=== PATIENT | female | born 1980 | race African-American/Black ===

== ENCOUNTER 2017-03-28 18:16 | Emergency (ER) | payer SELFPAY | END 2017-03-28 20:09 | disposition home or self-care (01) | LOC: ERS 18:16 | DX: L02.412 Cutaneous abscess of left axilla (principal); E11.9 Type 2 diabetes mellitus without complications; F17.210 Nicotine dependence, cigarettes, uncomplicated; I10 Essential (primary) hypertension | CPT/HCPCS: 99283 ==

== ENCOUNTER 2017-03-30 12:14 | Emergency (ER) | payer SELFPAY | END 2017-03-30 14:22 | disposition home or self-care (01) | LOC: ERS 12:14 | DX: Z48.817 Encounter for surgical aftercare following surgery on the skin and subcutaneous tissue (principal); Z48.01 Encounter for change or removal of surgical wound dressing; E11.9 Type 2 diabetes mellitus without complications; F17.210 Nicotine dependence, cigarettes, uncomplicated; I10 Essential (primary) hypertension | CPT/HCPCS: 99282 ==

== ENCOUNTER 2017-09-21 07:51 | Emergency (ER) | payer SELFPAY ==
[2017-09-21 08:20] LABS: #Basophils 0.1 thou/uL (0.0-0.2); #Eosinphils 0.2 thou/uL (0.0-0.7); #Lymphocytes 2.5 thou/uL (1.20-3.40); #Monocytes 0.7 thou/uL (0.11-0.59); #Neutrophils 3.5 thou/uL (1.40-6.50); %Basophils 0.9 % (0.0-1.0); %Eosinophils 2.3 % (0.0-10.0); %Lymphocytes 36.1 % (21.0-51.0); %Monocytes 9.6 % (0.0-10.0); %Neutrophils 51.2 % (42.0-75.0); Mean Corpuscular HGB CONC 33.5 g/dL (32.0-36.0); Mean Corpuscular Hemoglobin 26.1 pg (27.0-31.0); Mean Corpuscular Volume 77.9 fl (81.0-99.0); Mean Platelet Volume 7.1 fL (7.4-10.4); Platelet Count 355 thou/uL (130-400); RBC Distribution Width 16.2 % (11.5-14.5); Red Blood Cell (RBC) Count 4.62 mill/uL (4.20-5.40); White Blood Cell (WBC) Count 6.9 thou/uL (4.8-10.8)
[2017-09-21 08:40] LABS: ALT (SGPT) 13 U/L (8-55); AST (SGOT) 14 U/L (5-34); Albumin 3.9 g/dL (3.5-5.0); Alkaline Phosphatase 62 U/L (40-150); Anion Gap 11 mmol/L (10-20); BUN (Urea Nitrogen) 10 mg/dL (7.0-18.7); Bilirubin, Total 0.3 mg/dL (0.2-1.2); Calc. Creatinine Clearance 0 mL/min (70-130); Calcium 8.8 mg/dL (7.8-10.44); Carbon Dioxide 24 mmol/L (22-29); Chloride 107 mmol/L (98-107); Estimated GFR-MDRD Greater than 90; Globulin 4.2 g/dL (2.4-3.5); Glucose 95 mg/dL (70-105); Potassium 3.6 mmol/L (3.5-5.1); Protein, Total 8.1 g/dL (6.0-8.3); Sodium 138 mmol/L (136-145)
[2017-09-21] MEDS ORDERED: Ondansetron ODT 4 MG TAB ONE (09:08)
[2017-09-21] MEDS ORDERED: Lidocaine 2% Viscous Solution 10 ML, Aluminum & Magnesium Hydroxide 30 ML SSW SCH (11:00)
[2017-09-21 11:12] LABS: Bilirubin Negative (Negative); Blood, Urine Small (Negative); Glucose, Urine (Dipstick) Negative (Negative); Leukocyte Trace (Negative); Nitrite Negative (Negative); Protein, Urine (Dipstick) Negative (Neg-Trace); Urobilinogen 0.2 mg/dL (0.2-1.0); pH, Urine 5.5 (5.0-9.0)
[2017-09-21 11:15] LABS: Pregnancy Test - Urine (BHCG) Negative (Negative); Pregu Control Background? CLEAR/WHITE (CLR/WHITE); Pregu Control Bar Appear? YES (CONTROL BAR); Specific Gravity 1.015 (1.002-1.036)
[2017-09-21 11:16] LABS: Clarity CLEAR (Clear)
[2017-09-21 11:26] LABS: Bacteria/HPF 2+ HPF (None Seen); Hyaline Casts/LPF NONE SEEN LPF (0-3 Hyaline); WBC/HPF 0-3 HPF (0-3)
== END 2017-09-21 11:48 | disposition home or self-care (01) ==
LOC: ERS 07:51
DX: R19.7 Diarrhea, unspecified (principal); E11.9 Type 2 diabetes mellitus without complications; I10 Essential (primary) hypertension; F17.210 Nicotine dependence, cigarettes, uncomplicated; Z79.84 Long term (current) use of oral hypoglycemic drugs; Z79.899 Other long term (current) drug therapy
CPT/HCPCS: 36415; 80053; 81003; 81015; 81025; 85025; 99284; Q0162

== ENCOUNTER 2017-12-24 19:04 | Emergency (ER) | payer SELFPAY ==
[2017-12-24 20:25] LABS: #Basophils 0.1 thou/uL (0.0-0.2); #Eosinphils 0.2 thou/uL (0.0-0.7); #Lymphocytes 3.4 thou/uL (1.20-3.40); #Monocytes 0.8 thou/uL (0.11-0.59); #Neutrophils 6.2 thou/uL (1.40-6.50); %Basophils 0.8 % (0.0-1.0); %Eosinophils 2.1 % (0.0-10.0); %Lymphocytes 31.7 % (21.0-51.0); %Neutrophils 58.4 % (42.0-75.0); Hemoglobin 11.6 g/dL (12.0-16.0); Mean Corpuscular HGB CONC 34.7 g/dL (32.0-36.0); Mean Corpuscular Volume 77.8 fL (78.0-98.0); Mean Platelet Volume 6.5 fL (7.4-10.4); Platelet Count 345 thou/uL (130-400); RBC Distribution Width 14.9 % (11.5-14.5); Red Blood Cell (RBC) Count 4.31 mill/uL (4.20-5.40); White Blood Cell (WBC) Count 10.6 thou/uL (4.8-10.8)
[2017-12-24 20:27] LABS: Bilirubin Negative (Negative); Blood, Urine Large (Negative); Clarity CLOUDY (Clear); Glucose, Urine (Dipstick) Negative (Negative); Leukocyte Large (Negative); Nitrite Negative (Negative); Protein, Urine (Dipstick) Trace mg/dL (Neg-Trace); Specific Gravity, Urine 1.019 (1.002-1.036); Urobilinogen 0.2 mg/dL (0.2-1.0); pH, Urine 5.5 (5.0-9.0)
[2017-12-24 20:30] LABS: Bacteria/HPF 1+ HPF (None Seen); Hyaline Casts/LPF 0-3 HYALINE CAST LPF (0-3 Hyaline); Pathc Cast-AUWi Flag 0.29 (0-2.49); RBC/HPF GREATER THAN 50-TNTC HPF (0-3)
[2017-12-24 20:53] LABS: ALT (SGPT) 15 U/L (8-55); AST (SGOT) 13 U/L (5-34); Albumin 3.9 g/dL (3.5-5.0); Alkaline Phosphatase 55 U/L (40-150); Anion Gap 9 mmol/L (10-20); BUN (Urea Nitrogen) 13 mg/dL (7.0-18.7); Bilirubin, Total 0.2 mg/dL (0.2-1.2); Calc. Creatinine Clearance 0 mL/min (70-130); Calcium 9.3 mg/dL (7.8-10.44); Carbon Dioxide 26 mmol/L (22-29); Chloride 107 mmol/L (98-107); Estimated GFR-MDRD 78; Globulin 4.1 g/dL (2.4-3.5); Glucose 102 mg/dL (70-105); Potassium 3.3 mmol/L (3.5-5.1); Sodium 139 mmol/L (136-145)
== END 2017-12-24 21:54 | disposition home or self-care (01) ==
LOC: ERS 19:04
DX: N39.0 Urinary tract infection, site not specified (principal); R51 Headache; E11.9 Type 2 diabetes mellitus without complications; I10 Essential (primary) hypertension; F17.210 Nicotine dependence, cigarettes, uncomplicated
CPT/HCPCS: 36415; 80053; 81003; 81015; 85025; 87086; 99283

== ENCOUNTER 2018-01-24 13:13 | Emergency (ER) | payer SELFPAY ==
--- NOTE | 2018-01-24 14:08 | RAD ---
TWO VIEWS OF THE CHEST: COMPARISON: 06/27/03. HISTORY: Right chest pain. FINDINGS: Two views of the chest show a normal-size cardiomediastinal silhouette. Linear opacities in the lung bases likely represent atelectasis. There is no evidence of consolidation, mass, or pleural effusio n. IMPRESSION: 1. No evidence of acute cardiopulmonary disease. 2. Bibasilar atelectasis. POS: [facility]
[2018-01-24] MEDS ORDERED: Ondansetron HCl/PF 4 MG/2 ML Vial ONE ×2 (15:08→15:41)
[2018-01-24] MEDS ORDERED: Morphine 4 MG/ML VIAL ONE ×2 (15:08→15:41)
[2018-01-24 15:30] LABS: Bilirubin Negative (Negative); Blood, Urine Moderate (Negative); Clarity CLOUDY (Clear); Glucose, Urine (Dipstick) Negative (Negative); Leukocyte Trace (Negative); Nitrite Negative (Negative); Protein, Urine (Dipstick) Negative (Neg-Trace); Specific Gravity, Urine 1.015 (1.002-1.036); Urobilinogen 0.2 mg/dL (0.2-1.0); pH, Urine 6.5 (5.0-9.0)
[2018-01-24 15:34] LABS: Bacteria/HPF Rare-Few HPF (None Seen); Hyaline Casts/LPF 0-3 HYALINE CAST LPF (0-3 Hyaline); Pathc Cast-AUWi Flag 0.29 (0-2.49); RBC/HPF 0-3 HPF (0-3)
[2018-01-24 15:56] LABS: #Basophils 0.1 thou/uL (0.0-0.2); #Eosinphils 0.2 thou/uL (0.0-0.7); #Monocytes 0.6 thou/uL (0.11-0.59); #Neutrophils 6.6 thou/uL (1.40-6.50); %Eosinophils 1.6 % (0.0-10.0); %Lymphocytes 28.3 % (21.0-51.0); %Monocytes 5.5 % (0.0-10.0); %Neutrophils 63.5 % (42.0-75.0); Hemoglobin 11.4 g/dL (12.0-16.0); Mean Corpuscular HGB CONC 32.2 g/dL (32.0-36.0); Mean Corpuscular Hemoglobin 25.1 pg (27.0-31.0); Platelet Count 467 thou/uL (130-400); RBC Distribution Width 15.2 % (11.5-14.5); Red Blood Cell (RBC) Count 4.55 mill/uL (4.20-5.40); White Blood Cell (WBC) Count 10.4 thou/uL (4.8-10.8)
[2018-01-24 16:05] LABS: BHCG - Serum Negative (NEGATIVE); Pregs Control Background? CLEAR/WHITE (CLR/WHITE); Pregs Control Bar Appear? YES (CONTROL BAR)
--- NOTE | 2018-01-24 16:12 | ULT ---
RIGHT UPPER QUADRANT ULTRASOUND: 01/24/18 HISTORY: Right upper quadrant pain. FINDINGS: The liver demonstrates increased echogenicity concerning for fatty infiltration. No focal mass or harinder adrien dilatation is seen. No gallstones, gallbladder wall thickening or pericholecystic fluid is identi fied. The common duct measures 4 mm in diameter. The gallbladder is not satisfactory distended due t o patient's postprandial status. The right kidney and visualized portions of the pancreas are normal. No free fluid is seen. IMPRESSION: 1. Fatty liver. 2. No definite evidence of cholelithiasis. POS: [facility]
[2018-01-24 16:17] LABS: ALT (SGPT) 14 U/L (8-55); AST (SGOT) 18 U/L (5-34); Alkaline Phosphatase 63 U/L (40-150); Anion Gap 14 mmol/L (10-20); BUN (Urea Nitrogen) 8 mg/dL (7.0-18.7); Bilirubin, Total 0.2 mg/dL (0.2-1.2); Calc. Creatinine Clearance 0 mL/min (70-130); Calcium 9.5 mg/dL (7.8-10.44); Carbon Dioxide 24 mmol/L (22-29); Chloride 103 mmol/L (98-107); Estimated GFR-MDRD Greater than 90; Globulin 5.1 g/dL (2.4-3.5); Glucose 82 mg/dL (70-105); Lipase 17 U/L (8-78); Potassium 4.1 mmol/L (3.5-5.1); Protein, Total 9.1 g/dL (6.0-8.3); Sodium 137 mmol/L (136-145)
== END 2018-01-24 17:18 | disposition home or self-care (01) ==
LOC: ERS 13:13
DX: S29.011A Strain of muscle and tendon of front wall of thorax, initial encounter (principal); R10.11 Right upper quadrant pain; E11.9 Type 2 diabetes mellitus without complications; I10 Essential (primary) hypertension; F17.210 Nicotine dependence, cigarettes, uncomplicated; Z79.84 Long term (current) use of oral hypoglycemic drugs; Z79.899 Other long term (current) drug therapy; X58.XXXA Exposure to other specified factors, initial encounter
CPT/HCPCS: 71046; 76705; 80053; 81003; 81015; 83690; 84703; 85025; 87086; 96361; 96374; 96375; 99406; J2270; J2405

== ENCOUNTER 2018-07-10 13:10 | Emergency (ER) | payer SELFPAY | END 2018-07-10 14:14 | disposition home or self-care (01) | LOC: ERS 13:10 | DX: J10.1 Influenza due to other identified influenza virus with other respiratory manifestations (principal); I10 Essential (primary) hypertension; R73.03 Prediabetes; F17.210 Nicotine dependence, cigarettes, uncomplicated; Z79.84 Long term (current) use of oral hypoglycemic drugs; Z79.899 Other long term (current) drug therapy | CPT/HCPCS: 87081; 87430; 87804; 99283 ==

== ENCOUNTER 2018-08-27 19:39 | Emergency (ER) | payer SELFPAY ==
[2018-08-27 20:28] LABS: Bilirubin Negative (Negative); Blood, Urine Moderate (Negative); Clarity CLOUDY (Clear); Glucose, Urine (Dipstick) Negative (Negative); Leukocyte Large (Negative); Nitrite Negative (Negative); Protein, Urine (Dipstick) Negative (Neg-Trace); Specific Gravity, Urine 1.016 (1.002-1.036); pH, Urine 5.5 (5.0-9.0)
[2018-08-27 20:30] LABS: Pregnancy Test - Urine (BHCG) Negative (Negative); Pregu Control Background? CLEAR/WHITE (CLR/WHITE); Pregu Control Bar Appear? YES (CONTROL BAR); Specific Gravity 1.016 (1.002-1.036)
[2018-08-27 20:32] LABS: Bacteria/HPF 2+ HPF (None Seen); Hyaline Casts/LPF 0-3 HYALINE CAST LPF (0-3 Hyaline); Pathc Cast-AUWi Flag 0.68 (0-2.49)
== END 2018-08-27 21:44 | disposition home or self-care (01) ==
LOC: ERS 19:39
DX: J02.9 Acute pharyngitis, unspecified (principal); N39.0 Urinary tract infection, site not specified; R73.03 Prediabetes; F17.210 Nicotine dependence, cigarettes, uncomplicated; I10 Essential (primary) hypertension
CPT/HCPCS: 81003; 81015; 81025; 87081; 87430; 99283

== ENCOUNTER 2019-03-19 12:29 | Emergency (ER) | payer OTHER, SELFPAY ==
[2019-03-19] MEDS ORDERED: Ondansetron ODT 4 MG TAB ONE (12:53)
== END 2019-03-19 13:05 | disposition home or self-care (01) ==
LOC: ERS 12:29
DX: B34.9 Viral infection, unspecified (principal); I10 Essential (primary) hypertension; F17.210 Nicotine dependence, cigarettes, uncomplicated
CPT/HCPCS: 99283; Q0162

== ENCOUNTER 2019-05-12 16:44 | Emergency (ER) | payer SELFPAY ==
[2019-05-12 17:20] LABS: Bilirubin Negative (Negative); Blood, Urine 2+ (Negative); Clarity Turbid (Clear); Glucose, Urine (Dipstick) Normal (Negative); Leukocyte 500 Leu/uL (Negative); Nitrite Negative (Negative); Protein, Urine (Dipstick) 10 mg/dL (Neg-Trace); Squamous Epithelial 21-50 HPF (0-3); Urobilinogen Normal mg/dL (Less than 2)
[2019-05-12 17:28] LABS: Bacteria/HPF Rare-Few HPF (None Seen)
[2019-05-12] MEDS ORDERED: Azithromycin 250 MG TAB ONE (18:09)
[2019-05-12] MEDS ORDERED: cefTRIAXone\\ROCEPHIN 250 MG VIAL ONE (18:09)
[2019-05-12] MEDS ORDERED: Lidocaine 1% PF 5 ML VIAL ONE (18:09)
[2019-05-14 21:37] LABS: Chlamydia by PCR Not Detected (NotDetected); GC by PCR Not Detected (NotDetected)
== END 2019-05-12 18:40 | disposition home or self-care (01) ==
LOC: ERS 16:44
DX: N73.9 Female pelvic inflammatory disease, unspecified (principal); I10 Essential (primary) hypertension; F17.210 Nicotine dependence, cigarettes, uncomplicated
CPT/HCPCS: 81003; 81015; 87480; 87491; 87510; 87591; 87660; 96372; 99283; J0696; J2001

== ENCOUNTER 2019-05-15 09:44 | Observation (INO) | payer OTHER, SELFPAY ==
[2019-05-15 10:23] LABS: #Basophils 0.1 thou/uL (0.0-0.2); #Eosinphils 0.2 thou/uL (0.0-0.7); #Lymphocytes 2.6 thou/uL (1.20-3.40); #Monocytes 0.4 thou/uL (0.11-0.59); #Neutrophils 4.3 thou/uL (1.40-6.50); %Basophils 0.9 % (0.0-1.0); %Eosinophils 2.3 % (0.0-10.0); %Lymphocytes 34.1 % (21.0-51.0); %Monocytes 5.3 % (0.0-10.0); %Neutrophils 57.4 % (42.0-75.0); Hemoglobin 11.5 g/dL (12.0-16.0); Mean Corpuscular HGB CONC 32.6 g/dL (32.0-36.0); Mean Corpuscular Hemoglobin 25.1 pg (27.0-31.0); Mean Corpuscular Volume 77.2 fL (78.0-98.0); Mean Platelet Volume 7.7 fL (7.4-10.4); Platelet Count 352 thou/uL (130-400); RBC Distribution Width 16.1 % (11.5-14.5); Red Blood Cell (RBC) Count 4.57 mill/uL (4.20-5.40); White Blood Cell (WBC) Count 7.5 thou/uL (4.8-10.8)
--- NOTE | 2019-05-15 10:25 | RAD ---
XR Chest Pa Lat STANDARD HISTORY: Chest pain COMPARISON: 01/24/2018 FINDINGS: The heart size is normal. The lungs are well expanded without focal areas of consolidation, pneumothorax or pleural effusions. IMPRESSION: No radiographic evidence of acute cardiopulmonary process.
[2019-05-15 10:29] LABS: ALT (SGPT) 20 U/L (8-55); AST (SGOT) 18 U/L (5-34); Alkaline Phosphatase 58 U/L (40-110); Anion Gap 14 mmol/L (10-20); BUN (Urea Nitrogen) 9 mg/dL (7.0-18.7); Bilirubin, Total 0.4 mg/dL (0.2-1.2); Calc. Creatinine Clearance 0 mL/min (70-130); Calcium 9.2 mg/dL (7.8-10.44); Carbon Dioxide 21 mmol/L (22-29); Chloride 107 mmol/L (98-107); Estimated GFR-MDRD Greater than 90; Globulin 3.6 g/dL (2.4-3.5); Glucose 123 mg/dL (70-105); Lipase 20 U/L (8-78); Potassium 3.9 mmol/L (3.5-5.1); Protein, Total 7.6 g/dL (6.0-8.3); Sodium 138 mmol/L (136-145)
[2019-05-15] MEDS ORDERED: hydrALAZINE 20 MG/ML VIAL ONE (11:51)
[2019-05-15 11:57] LABS: Bilirubin Negative (Negative); Blood, Urine Trace (Negative); Clarity Turbid (Clear); Glucose, Urine (Dipstick) Normal (Negative); Leukocyte 250 Leu/uL (Negative); Nitrite Negative (Negative); Protein, Urine (Dipstick) Negative (Neg-Trace); Squamous Epithelial 21-50 HPF (0-3); Urobilinogen Normal mg/dL (Less than 2)
[2019-05-15 11:59] LABS: Bacteria/HPF 1+ HPF (None Seen)
[2019-05-15] MEDS ORDERED: Acetaminophen 500 MG TAB ONE (12:56)
[2019-05-15] MEDS ORDERED: Labetalol HCl 100 MG/20 ML VIAL ONE (13:31)
--- NOTE | 2019-05-15 14:20 | PDOC.FPRHP ---
- History of Present Illness Chief Complaint: Chest Pain and n/v History of Present Illness: 38 yo female with known HTN that has not been on any medication in over 1 year presents for evaluation of chest tightness associated with dizziness and vomiting earlier today. She reports she was nauseated on the way to work this morning. Once she got to work she began vomiting and had chest tightness. She also reports a numbness to her left jaw. She also reports she notes that she felt sweaty during those times. She states that this has never happened before. Patient also note she has had a severe pounding headache during this time with some photophobia. She notes that she hasn't checked her BP or been taking her BP medication as prescribed. Of note, she does state she had a cold at the end of March and has been taking multiple OTC cough/cold medications which she can't name exactly. No other complaints. ED Course: IV Hydralazine 20 mg IV Labetalol 20 mg 1000 mg Tylenol - Allergies/Adverse Reactions Allergies Allergy/AdvReac Type Severity Reaction Status Date / Time No Known Drug Allergies Allergy Verified 05/15/19 15:33 - Home Medications Medication Instructions Recorded Confirmed Type Doxycycline [Vibramycin] 100 mg PO BID 05/15/19 05/15/19 History - History PMHx: HTN, Pre-DM, PSHx: None FHx: Heart Disease, Diabetes, Social: - Review of Systems General: denies: fever/chills, weight/appetite/sleep changes Eyes: denies: eye pain, vision changes ENT: denies: nasal congestion, rhinorrhea Respiratory: reports: shortness of breath. denies: cough Cardiovascular: reports: chest pain. denies: palpitation, edema Gastrointestinal: reports: nausea, vomiting. denies: diarrhea, abdominal pain Genitourinary: denies: incontinence, dysuria Skin: denies: rashes, lesions Musculoskeletal: denies: pain, tenderness, stiffness, swelling Neurological: reports: numbness. denies: syncope, weakness Psychological: denies: anxiety, depression - Vital signs BP: 190/99 HR: 81 RR: 16 Tmax: 98.1 Pox: 97% on RoomAir Wt: 127 kg - Physical Exam Constitutional: NAD, awake, alert and oriented HEENT: normocephalic and atraumatic, PERRLA, grossly normal vision, grossly normal hearing, normal nasal mucosa Neck: supple, FROM Heart: RRR, normal S1/S2 Lungs: CTAB, no respiratory distress, good air movement Abdomen: soft, non-tender, bowel sounds present, no masses/distention Musculoskeletal: normal structure, normal tone, ROM grossly normal Neurological: no focal deficit, CN II-XII intact, normal sensation Skin: no rash/lesions, good turgor, capillary refill <2 seconds Heme/Lymphatic: no unusual bruising or bleeding, no purpura Psychiatric: normal mood and affect, good judgment and insight, intact recent and remote memory FMR H&P: Results - Labs Result Diagrams: 05/15/19 09:57 05/15/19 09:58 Lab results: WBC 7.5 thou/uL (4.8-10.8) 05/15/19 09:57 Hgb 11.5 g/dL (12.0-16.0) L 05/15/19 09:57 Hct 35.2 % (36.0-47.0) L 05/15/19 09:57 MCV 77.2 fL (78.0-98.0) L 05/15/19 09:57 Plt Count 352 thou/uL (130-400) 05/15/19 09:57 Neutrophils % 57.4 % (42.0-75.0) 05/15/19 09:57 Sodium 138 mmol/L (136-145) 05/15/19 09:58 Potassium 3.9 mmol/L (3.5-5.1) 05/15/19 09:58 Chloride 107 mmol/L (98-107) 05/15/19 09:58 Carbon Dioxide 21 mmol/L (22-29) L 05/15/19 09:58 BUN 9 mg/dL (7.0-18.7) 05/15/19 09:58 Creatinine 0.76 mg/dL (0.6-1.1) 05/15/19 09:58 Glucose 123 mg/dL (70-105) H 05/15/19 09:58 Calcium 9.2 mg/dL (7.8-10.44) 05/15/19 09:58 Total Bilirubin 0.4 mg/dL (0.2-1.2) 05/15/19 09:58 AST 18 U/L (5-34) 05/15/19 09:58 ALT 20 U/L (8-55) 05/15/19 09:58 Alkaline Phosphatase 58 U/L (40-110) 05/15/19 09:58 B-Natriuretic Peptide Less than 10.0 pg/mL (0-100) 05/15/19 11:43 Serum Total Protein 7.6 g/dL (6.0-8.3) 05/15/19 09:58 Albumin 4.0 g/dL (3.5-5.0) 05/15/19 09:58 Lipase 20 U/L (8-78) 05/15/19 09:58 Urine Ketones Negative mg/dL (Negative) 05/15/19 11:45 Urine Blood Trace (Negative) A 05/15/19 11:45 Urine Nitrite Negative (Negative) 05/15/19 11:45 Ur Leukocyte Esterase 250 Marino/uL (Negative) A 05/15/19 11:45 Urine RBC 4-6 HPF (0-3) A 05/15/19 11:45 Urine WBC 11-20 HPF (0-3) A 05/15/19 11:45 Ur Squamous Epith Cells 21-50 HPF (0-3) A 05/15/19 11:45 Urine Bacteria 1+ HPF (None Seen) A 05/15/19 11:45 - EKG Interpretation EK lead EKG shows normal sinus rhythm, Rate (beats per minute): 82, with no ectopics, Interpretation: normal EKG, Conduction normal, ST segments normal, T waves normal, [place] normal, Clinical impression: Normal EKG. FMR H&P: A/P - Problem List (1) Hypertensive urgency Current Visit: Yes Status: Acute Code(s): I16.0 - HYPERTENSIVE URGENCY (2) Headache Current Visit: Yes Status: Acute Code(s): R51 - HEADACHE - Plan HTN Urgency - s/p labetalol and hydralazine in ED - Likely will need chronic BP management and restarted previous HCTZ Rx - Continuous cardiac monitoring - PRN available Headache - Likely secondary to above - Pain control as needed PCP: TAMP CODE STATUS: FULL CODE Disposition: Stable, will admit for further evaluation and management. Addendum - Attending - Attending Attestation Date/Time: 05/15/191943 I personally evaluated the patient and discussed the management with Dr. Myers I agree with the History, Examination, Assessment and Plan documented above with any addition or exceptions noted below - 38 yo female h/o HTN who has not taken any medication in over 1 year presents for evaluation of chest tightness associated with dizziness and vomiting earlier today. She reports she was nauseated on the way to work this morning. Once she got to work she began vomiting and had chest tightness. She also reports a numbness to her left jaw. She also reports she notes that she felt sweaty during those times. She states that this has never happened before. Patient also note she has had a severe pounding headache during this time with some photophobia. PMH/PSH/Meds/SH reviewed and agree with resident's. Afebrile BP 190/99 in ER 150/87 P85 Exam repeated by me and agree with resident's findings. Labs: H/H=11.5/35.2, Na= 138, K=3.9, Se=253, CO2=21, BUN/Cr=9/0.76, Ejrr=675, AST/ALT=18/20, Trop I< 0.010 A/P: 1) Hypertensive urgency- BP improved; will need to restart antihypertensives. 2) Chest pain - most likely secondary to elevated BP; continue serial cardiac enzymes.
[2019-05-15 14:52] LABS: Troponin I Less than 0.010 ng/mL (< 0.028)
[2019-05-15 15:15] VITALS: BMI 46.5
[2019-05-15] MEDS ORDERED: hydrALAZINE 20 MG/ML VIAL SLOW IVP PRN (15:48)
[2019-05-15] MEDS ORDERED: Ondansetron ODT 4 MG TAB PO PRN (15:49)
[2019-05-15] MEDS ORDERED: Metoclopramide HCl 10 MG/2 ML VIAL IVP SCH (16:00)
[2019-05-15] MEDS ORDERED: Ketorolac Tromethamine 30 MG/ML VIAL IVP SCH (16:00)
[2019-05-15 17:43] LABS: Hemoglobin A1c 5.8 % (4.0-6.0)
[2019-05-15 17:57] LABS: Phosphorus 3.1 mg/dL (2.3-4.7)
[2019-05-15 18:02] LABS: Troponin I Less than 0.010 ng/mL (< 0.028)
[2019-05-15] MEDS: Acetaminophen 325 MG TAB PO PRN (20:10)
[2019-05-16] MEDS: Acetaminophen 325 MG TAB PO PRN ×2 (04:56→09:55)
[2019-05-16 05:31] LABS: Cardiac Risk 2.6 (Less than 4.5)
--- NOTE | 2019-05-16 08:09 | PDOC.FM ---
- Subjective Subjective: Doing well this morning, no acute events overnight. CP completely resolved by time onto floor, no return of sxs. Had MUSTAFA at admission but this also has resolved. Denies any SOB, n/v, diarrhea/constipation, fever/chills. Tolerating PO well. Ambulating without difficulty. Eager for discharge. - Objective MAR Reviewed: Yes Vital Signs & Weight: Vital Signs (12 hours) Temp Pulse Resp BP Pulse Ox 05/16/19 07:36 100 05/16/19 04:00 98.1 F 72 16 108/57 L 100 05/16/19 00:14 126/72 Weight Weight 134.745 kg I&O: 05/15/19 05/16/19 05/17/19 06:59 06:59 06:59 Intake Total 542 Balance 542 Result Diagrams: 05/15/19 09:57 05/15/19 09:58 Phys Exam - Physical Examination Constitutional: NAD (resting comfortably, in good spirits) HEENT: moist MMs Neck: supple Respiratory: no wheezing, no rales, no rhonchi, clear to auscultation bilateral Cardiovascular: RRR, no significant murmur, no rub Gastrointestinal: soft, non-tender, no distention, positive bowel sounds Musculoskeletal: no edema Neurological: non-focal, moves all 4 limbs Psychiatric: normal affect, A&O x 3 Dx/Plan (1) Sickle cell trait Code(s): D57.3 - SICKLE-CELL TRAIT Status: Chronic (2) Prediabetes Code(s): R73.03 - PREDIABETES Status: Chronic - Plan Plan: 38yo AAF with h/o sickle cell trait, HTN, preDM presents with HTN Urgency #HTN urgency, resolved - Presented with elevated BP of 190/99, CP, MUSTAFA - Trop neg x3 - s/p labetalol and hydralazine in ED - Lytes, renal function, LFTs WNL - Started HCTZ 12.5mg daily - BP WNL on the floor, sxs completely resolved #Headache, resolved - has chronic HAs, uses Tylenol and Motrin, no current sxs - could be 2/2 HTN, now improved, will need OP f/u #Anemia - Low MCV, known sickle cell trait - will check iron studies, has heavy periods. #PreDM - A1C 5.8 - Lipid Panel WNL - cont counseling on diet and exercise, f/u with PCP PCP: KRISTIAN IVF: SL Code: Full Diet :Regular Disposition: Stable, improved, at baseline. Ready for discharge today. Addendum - Attending - Attending Attestation Date/Time: 05/16/19 0765 I personally evaluated the patient and discussed the management with Dr. Kelly Landeros I agree with the History, Examination, Assessment and Plan documented above with any addition or exceptions noted below. Patient stable agree with plan for dismissal . Patient aware of the importance of timely outpatient f/u.
[2019-05-16] MEDS ORDERED: Hydrochlorothiazide 25 MG TAB PO SCH (09:00)
[2019-05-16] MEDS ORDERED: Ferrous Sulfate 325 MG TAB PO SCH (11:15)
[2019-05-16 11:49] VITALS: BP 138/88; TEMP 98.1
--- NOTE | 2019-05-17 13:13 | DIS ---
DATE OF ADMISSION: 05/15/2019 DATE OF DISCHARGE: 05/16/2019 RESIDENT: Nawaf Landeros MD ADMITTING ATTENDING: Alize Guzman MD DISCHARGE ATTENDING: Ezra Sexton MD ADMITTING ATTENDIN05/15/2018. CONSULTS: None. PROCEDURES: Chest x-ray on 05/15/2019, demonstrating no acute cardiopulmonary process. PRIMARY DIAGNOSIS: Hypertensive urgency, resolved. SECONDARY DIAGNOSES: 1. Sickle cell trait with anemia. 2. Prediabetes. DISCHARGE MEDICATIONS: 1. Ferrous sulfate 325 mg p.o. q.2 days. 2. Hydrochlorothiazide 12.5 mg p.o. daily. DISCONTINUED MEDICATIONS: Doxycycline 100 mg p.o. b.i.d. HISTORY OF PRESENT ILLNESS AND HOSPITAL COURSE: The patient is a pleasant 38-year-old female with a known history of hypertension who has not been on medications for over one year, who presented with chest tightness associated with dizziness and vomiting earlier in the day. She also reported numbness to her left jaw and some associated diaphoresis. She states it never happened before. She does endorse a severe pounding headache during the same time; however, she does have a history of chronic headaches. She notes that she does not check her blood pressure or has been taking a blood pressure medication. In the emergency department, she was found to have a blood pressure of 190/99. She was given 20 mg of IV hydralazine and 20 mg IV labetalol and 1 g of Tylenol. With this, her blood pressure did improve and her symptoms began to resolve. An EKG was obtained that showed normal sinus rhythm, was otherwise normal. She was admitted to telemetry for monitoring her symptoms, blood pressure, and troponins were trended. Once on the floor, the patient did very well. She had complete resolution of her chest pain, numbness and symptoms including her headache and nausea. She was able to ambulate around the room and tolerating p.o. well, and on the morning of discharge, she is very eager for her discharge. Blood pressure was monitored after starting hydrochlorothiazide 12.5 mg daily and was in the 120s over 70s consistently. Electrolytes, renal function, LFTs were within normal limits. Troponins were trended and negative x3. She had no acute abnormalities on telemetry. I discussed with the patient that she would need to follow up with her primary care provider for further blood pressure monitoring and titration of medications. It also determined that the patient had prediabetes with A1c of 5.8 and lipid panel was within normal limits. She was told to discuss this with her primary care provider who may recommend addition of medications such as metformin or diet and lifestyle modifications and further monitoring of her prediabetes. The patient was also found to be anemic at 11.5. She was asymptomatic. The patient disclosed that she had sickle cell trait, which could be the cause of her anemia. The iron studies were obtained due to anemia being microcytic, a ferritin was found to be 32. It was determined that the patient would probably benefit from oral iron 325 mg every other day. The patient states she has always had heavy periods as this could likely be contributing to her anemia. At the time of discharge, the patient was ambulating well, had complete resolution of her symptoms and was eager for discharge. Discharge plan was discussed with the patient who voiced agreement understanding of discharge plan. All questions were answered appropriately. DISPOSITION: Stable. DISCHARGE INSTRUCTIONS: 1. Location: Home. 2. Diet: Low-sodium. 3. Activity: As tolerated. 4. Followup: The patient is to follow up with primary care physician within one week of discharge. Job ID: [id number] MTDD
== END 2019-05-16 13:41 | disposition home or self-care (01) ==
LOC: ERS 09:44 → 2SW 15:02
PROVIDERS: ADMIT Family Medicine; ATTEND Family Medicine
DX: I16.0 Hypertensive urgency (principal); I10 Essential (primary) hypertension; D57.1 Sickle-cell disease without crisis; R73.03 Prediabetes
CPT/HCPCS: 36415; 36416; 71046; 80053; 80061; 81003; 81015; 82728; 83036; 83550; 83690; 83735; 83880; 84100; 84443; 84484; 85025; 87086; 93005; 94760; 96374; 96375; G0378; J0360; J1885; J2765

== ENCOUNTER 2019-08-28 12:30 | Emergency (ER) | payer SELFPAY ==
[2019-08-28 13:08] LABS: #Eosinphils 0.2 thou/uL (0.0-0.7); #Lymphocytes 2.8 thou/uL (1.20-3.40); #Monocytes 0.5 thou/uL (0.11-0.59); #Neutrophils 4.7 thou/uL (1.40-6.50); %Basophils 0.6 % (0.0-1.0); %Eosinophils 2.6 % (0.0-10.0); %Lymphocytes 34.1 % (21.0-51.0); %Monocytes 5.7 % (0.0-10.0); Hemoglobin 12.1 g/dL (12.0-16.0); Mean Corpuscular HGB CONC 31.9 g/dL (32.0-36.0); Mean Corpuscular Hemoglobin 25.4 pg (27.0-31.0); Mean Corpuscular Volume 79.6 fL (78.0-98.0); Mean Platelet Volume 7.1 fL (7.4-10.4); Platelet Count 369 thou/uL (130-400); RBC Distribution Width 15.3 % (11.5-14.5); Red Blood Cell (RBC) Count 4.77 mill/uL (4.20-5.40); White Blood Cell (WBC) Count 8.3 thou/uL (4.8-10.8)
[2019-08-28 13:30] LABS: ALT (SGPT) 18 U/L (8-55); AST (SGOT) 15 U/L (5-34); Albumin 3.8 g/dL (3.5-5.0); Alkaline Phosphatase 53 U/L (40-110); Anion Gap 13 mmol/L (10-20); BUN (Urea Nitrogen) 11 mg/dL (7.0-18.7); Bilirubin, Total 0.2 mg/dL (0.2-1.2); CK (CPK) 108 U/L (29-168); Calc. Creatinine Clearance 0 mL/min (70-130); Calcium 9.6 mg/dL (7.8-10.44); Carbon Dioxide 24 mmol/L (22-29); Chloride 104 mmol/L (98-107); Estimated GFR-MDRD Greater than 90; Globulin 3.9 g/dL (2.4-3.5); Glucose 104 mg/dL (70-105); Potassium 3.1 mmol/L (3.5-5.1); Protein, Total 7.7 g/dL (6.0-8.3); Sodium 138 mmol/L (136-145)
--- NOTE | 2019-08-28 13:44 | RAD ---
CHEST 1 VIEW: HISTORY: Chest pain. COMPARISON: Radiograph 05/15/2019. FINDINGS: Lungs are clear. No pneumothorax. No effusion. Cardiac silhouette and mediastinal contours are wit hin normal limits. No acute osseous abnormality. IMPRESSION: No acute intrathoracic abnormality. POS: HOME
== END 2019-08-28 15:57 | disposition home or self-care (01) ==
LOC: ERS 12:30
DX: R07.89 Other chest pain (principal); I10 Essential (primary) hypertension; F17.210 Nicotine dependence, cigarettes, uncomplicated; R73.03 Prediabetes; Z79.899 Other long term (current) drug therapy
CPT/HCPCS: 36415; 71045; 80053; 82550; 84484; 85025; 93005

== ENCOUNTER 2020-06-22 09:07 | Emergency (ER) | payer MEDICAID, SELFPAY ==
[2020-06-22 09:31] LABS: Pregnancy Test - Urine (BHCG) POSITIVE (Negative); Pregu Control Background? CLEAR/WHITE (CLR/WHITE); Pregu Control Bar Appear? YES (CONTROL BAR); Specific Gravity 1.013 (1.002-1.036)
[2020-06-22 09:52] LABS: #Eosinphils 0.2 thou/uL (0.0-0.7); #Lymphocytes 2.7 thou/uL (1.20-3.40); #Monocytes 0.4 thou/uL (0.11-0.59); #Neutrophils 6.2 thou/uL (1.40-6.50); %Basophils 0.4 % (0.0-1.0); %Eosinophils 2.5 % (0.0-10.0); %Monocytes 4.5 % (0.0-10.0); %Neutrophils 64.6 % (42.0-75.0); Hemoglobin 11.9 g/dL (12.0-16.0); Mean Corpuscular HGB CONC 34.1 g/dL (32.0-36.0); Mean Corpuscular Hemoglobin 26.9 pg (27.0-31.0); Mean Platelet Volume 7.4 fL (7.4-10.4); Platelet Count 283 thou/uL (130-400); RBC Distribution Width 15.7 % (11.5-14.5); Red Blood Cell (RBC) Count 4.42 mill/uL (4.20-5.40); White Blood Cell (WBC) Count 9.6 thou/uL (4.8-10.8)
[2020-06-22 10:03] LABS: Bilirubin Negative (Negative); Blood, Urine Trace (Negative); Clarity Turbid (Clear); Glucose, Urine (Dipstick) Normal (Negative); Ketone, Urine Negative (Negative); Leukocyte 250 Leu/uL (Negative); Nitrite Negative (Negative); Protein, Urine (Dipstick) Negative (Neg-Trace); Specific Gravity, Urine 1.013 (1.002-1.036); Urobilinogen Normal mg/dL (Less than 2)
[2020-06-22 10:05] LABS: ALT (SGPT) 13 U/L (8-55); AST (SGOT) 14 U/L (5-34); Albumin 3.8 g/dL (3.5-5.0); Alkaline Phosphatase 49 U/L (40-110); Anion Gap 13 mmol/L (10-20); BUN (Urea Nitrogen) 9 mg/dL (7.0-18.7); Bilirubin, Total 0.3 mg/dL (0.2-1.2); Calc. Creatinine Clearance 0 mL/min (70-130); Calcium 9.2 mg/dL (7.8-10.44); Carbon Dioxide 22 mmol/L (22-29); Chloride 105 mmol/L (98-107); Globulin 4.2 g/dL (2.4-3.5); Glucose 128 mg/dL (70-105); Potassium 3.9 mmol/L (3.5-5.1); Sodium 136 mmol/L (136-145)
[2020-06-22 10:09] LABS: Bacteria/HPF 1+ HPF (None Seen)
== END 2020-06-22 12:27 | disposition home or self-care (01) ==
LOC: ERS 09:07
DX: O23.11 Infections of bladder in pregnancy, first trimester (principal); O16.1 Unspecified maternal hypertension, first trimester; O99.331 Smoking (tobacco) complicating pregnancy, first trimester; Z3A.09 9 weeks gestation of pregnancy; Z79.899 Other long term (current) drug therapy
CPT/HCPCS: 36415; 80053; 81003; 81015; 81025; 85025; 94760; 99284

== ENCOUNTER 2020-12-31 12:33 | Emergency (ER) | payer MEDICAID, OTHER ==
[2020-12-31 15:00] LABS: SARS-CoV-2 NAA Rapid Test Not Detected (NotDetected)
[2020-12-31 15:17] LABS: Bacteria/HPF None Seen HPF (None Seen); Bilirubin Negative (Negative); Blood, Urine Negative (Negative); Clarity Turbid (Clear); Glucose, Urine (Dipstick) Normal (Negative); Ketone, Urine Negative (Negative); Leukocyte 75 Leu/uL (Negative); Nitrite Negative (Negative); Protein, Urine (Dipstick) 10 mg/dL (Neg-Trace); RBC/HPF 0-3 HPF (0-3); Specific Gravity, Urine 1.019 (1.002-1.036); Urobilinogen Normal mg/dL (Less than 2); WBC/HPF 0-3 HPF (0-3)
== END 2020-12-31 16:10 | disposition home or self-care (01) ==
LOC: ERS 12:33
DX: O99.513 Diseases of the respiratory system complicating pregnancy, third trimester (principal); J06.9 Acute upper respiratory infection, unspecified; O10.913 Unspecified pre-existing hypertension complicating pregnancy, third trimester; O99.333 Smoking (tobacco) complicating pregnancy, third trimester; F17.210 Nicotine dependence, cigarettes, uncomplicated; O09.523 Supervision of elderly multigravida, third trimester; Z20.822 Contact with and (suspected) exposure to COVID-19; Z91.14 Patient's other noncompliance with medication regimen; Z3A.36 36 weeks gestation of pregnancy
CPT/HCPCS: 0240U; 81003; 81015

== ENCOUNTER 2025-03-03 08:27 | Emergency (ER) | payer SELFPAY ==
[2025-03-03 09:16] LABS: Glucose, Urine (Dipstick) Negative (Negative); Leukocyte Small (Negative); Protein, Urine (Dipstick) Negative (Neg-Trace); Specific Gravity, Urine 1.020 (1.005-1.030)
[2025-03-03 09:26] LABS: CAUTI Indications for Culture Pelvic or flank pain
[2025-03-03 09:29] LABS: Bacteria/HPF 1+ HPF (None Seen); Yeast-Budding Rare HPF (None Seen)
[2025-03-03 09:30] LABS: Urine Culture Reflex No No
[2025-03-03] MEDS ORDERED: Ketorolac Tromethamine 30 MG (1 mL) VIAL ONE (09:38)
[2025-03-03 09:47] LABS: Pregnancy Test - Urine (BHCG) Negative (Negative); Pregu Control Background? CLEAR/WHITE (CLR/WHITE); Pregu Control Bar Appear? YES (CONTROL BAR)
[2025-03-03 14:34] LABS: Chlamydia by PCR, Vaginal Swab Not Detected (NotDetected); GC by PCR, Vaginal Swab Not Detected (NotDetected)
== END 2025-03-03 11:21 | disposition home or self-care (01) ==
LOC: ERS 08:27
DX: N76.0 Acute vaginitis (principal); B96.89 Other specified bacterial agents as the cause of diseases classified elsewhere; B37.31 Acute candidiasis of vulva and vagina; I11.0 Hypertensive heart disease with heart failure; I50.9 Heart failure, unspecified; E11.9 Type 2 diabetes mellitus without complications; F17.210 Nicotine dependence, cigarettes, uncomplicated
CPT/HCPCS: 74176; 81001; 81025; 87480; 87491; 87510; 87591; 87660; 96372; J1885